=== PATIENT | female | born 1970 | race Caucasian/White ===

== ENCOUNTER → 2018-09-27 | Outpatient (CLI) | payer MEDICARE, MEDICAID | LOC: DL.CLIN 15:15 | DX: Z76.5 Malingerer [conscious simulation] (principal) | CPT/HCPCS: 99213 ==

== ENCOUNTER 2020-01-28 03:22 | Emergency (ER) | payer MEDICARE, MEDICAID ==
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
== END 2020-01-28 04:44 | disposition home or self-care (01) ==
LOC: DL.ED 03:22
DX: S00.83XA Contusion of other part of head, initial encounter (principal); S60.221A Contusion of right hand, initial encounter; S80.02XA Contusion of left knee, initial encounter; F41.9 Anxiety disorder, unspecified; Z79.899 Other long term (current) drug therapy; Z88.8 Allergy status to other drugs, medicaments and biological substances; Z88.6 Allergy status to analgesic agent; Y04.0XXA Assault by unarmed brawl or fight, initial encounter
CPT/HCPCS: 70250; 73120-RT; 73560-LT; 99283

== ENCOUNTER 2021-10-07 19:15 | Emergency (ER) | payer MEDICARE, MEDICAID ==
[2021-10-07] MEDS ORDERED: Clindamycin HCl 150 MG Cap PO ONE (20:35)
[2021-10-07] MEDS ORDERED: Acetaminophen/HYDROcodone 325-10 MG Tab PO ONE (20:36)
== END 2021-10-07 20:46 | disposition home or self-care (01) ==
LOC: DL.ED 19:15
DX: K04.7 Periapical abscess without sinus (principal); K02.9 Dental caries, unspecified; K00.7 Teething syndrome; E78.00 Pure hypercholesterolemia, unspecified; F17.210 Nicotine dependence, cigarettes, uncomplicated; Z88.8 Allergy status to other drugs, medicaments and biological substances; Z88.5 Allergy status to narcotic agent; Z79.899 Other long term (current) drug therapy
CPT/HCPCS: 99282; 99283; A9270

== ENCOUNTER 2021-10-08 01:32 | Emergency (ER) | payer MEDICARE | END 2021-10-08 04:30 | disposition left against medical advice (07) | LOC: DL.ED 01:32 | DX: Z53.21 Procedure and treatment not carried out due to patient leaving prior to being seen by health care provider (principal) ==